=== PATIENT | female | born 1955 | race Caucasian/White ===

== ENCOUNTER 2021-06-10 14:48 | Emergency (ER) | payer OTHER ==
--- NOTE | 2021-06-10 15:12 | ED Physician Documentation ---
PD HPI MAJOR TRAUMA - Stated complaint Stated Complaint: ,HEAD & FACE INJURY - Chief complaint Chief Complaint: Trauma Hd/Nk - History obtained from History obtained from: Patient - Additional information Additional information: 66-year-old woman who is up-to-date on tetanus fell face forward onto concrete after a trip and fall without loss of consciousness. She is significant neck pain and some facial pain as well as a moderate headache. She has some scrapes on the hands but those do not hurt and she has full range of motion there. No other injuries. Review of Systems Constitutional: reports: Reviewed and negative Eyes: reports: Reviewed and negative Ears: reports: Reviewed and negative Nose: reports: Reviewed and negative Throat: reports: Reviewed and negative Cardiac: reports: Reviewed and negative PD PAST MEDICAL HISTORY - Allergies Allergies/Adverse Reactions: Allergies Allergy/AdvReac Type Severity Reaction Status Date / Time Opiods AdvReac Unknown Uncoded 06/10/21 14:57 PD ED PE NORMAL - Vitals Vital signs reviewed: Yes - General General: Alert and oriented X 3, No acute distress - HEENT HEENT: PERRL, EOMI, Other (Swelling and contusion of the bridge of the nose which is tender and the left side of the forehead. Also some scrapes in the infraorbital areas but no tenderness there.). No: Dentition benign (She has minor chips of upper and lower incisors on the left. 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, No motor deficit, No sensory deficit, Normal speech Eye Opening: Spontaneous Motor: Obeys Commands Verbal: Oriented GCS Score: 15 Results - Vitals Vitals: Vital Signs - 24 hr 06/10/21 14:50 Temperature 36.2 C L Heart Rate 62 Respiratory 17 Rate Blood Pressure 132/81 H O2 Saturation 100 Oxygen O2 Source Room air - Rads (name of study) CT of the head face and cervical spine demonstrates a nasal bone fracture but no other trauma Radiology: EMP read contemporaneously PD MEDICAL DECISION MAKING - ED course Complexity details: reviewed results, re-evaluated patient, considered differential, d/w patient ED course: 66-year-old woman after a ground-level fall, facial neck and head pain. Scrapes on the hands but no tenderness there and full range of motion. Declines pain medication. Departure - Departure Disposition: 01 Home, Self Care Clinical Impression: Nasal fracture Qualifiers: Encounter type: initial encounter Fracture type: closed Qualified Code(s): S02.2XXA - Fracture of nasal bones, initial encounter for closed fracture Head injury Qualifiers: Encounter type: initial encounter Qualified Code(s): S09.90XA - Unspecified injury of head, initial encounter Neck sprain Qualifiers: Encounter type: initial encounter Qualified Code(s): S13.9XXA - Sprain of joints and ligaments of unspecified parts of neck, initial encounter Dental injury Qualifiers: Encounter type: initial encounter Qualified Code(s): S09.93XA - Unspecified injury of face, initial encounter Condition: Good Record reviewed to determine appropriate education?: Yes Instructions: ED Fx Nasal Conf W X Ray, ED Head Injury Closed Comments: Follow-up with your dentist regarding the dental fractures. You may want to follow-up with an oral maxillofacial surgeon or an ear nose and throat special ist regarding the nasal fracture. Take the copy of the CAT scan on CD with you to that appointment. You can call after you get home tomorrow. Suspect you will have to travel to [place] for that. Tylenol and/or Aleve as needed for pain. You can ice the nose as needed.
--- NOTE | 2021-06-10 15:52 | CT Report ---
PROCEDURE: CERVICAL SPINE WO INDICATIONS: neck injury TECHNIQUE: Noncontrast 3 mm thick sections acquired from the skull base to the T4 level. Sagittal and coronal r eformats were then constructed. For radiation dose reduction, the following was used: automated exp osure control, adjustment of mA and/or kV according to patient size. COMPARISON: None. FINDINGS: Image quality: Excellent. Bones: No fractures or dislocations. Visualized superior ribs are intact. There are lucencies pres ent in the C3 vertebra and C5 vertebra which are both felt to likely be benign. There is mild cervica l spondylitic change. Soft tissues: Prevertebral soft tissues are normal in thickness. No paravertebral hematomas. No ap ical pneumothoraces. IMPRESSION: No evidence acute cervical fracture or dislocation. Mild cervical spondylitic change. Reviewed by: Frank Sharif MD on 06/10/2021 2:51 PM [facility] Approved by: Frank Sharif MD on 06/10/2021 2:51 PM [facility] Station ID: [id number]
--- NOTE | 2021-06-10 15:54 | CT Report ---
PROCEDURE: HEAD WO INDICATIONS: head injury TECHNIQUE: Noncontrast 4.5 mm thick angled axial sections acquired from the foramen magnum to the vertex. For r adiation dose reduction, the following was used: automated exposure control, adjustment of mA and/or kV according to patient size. COMPARISON: None. FINDINGS: Image quality: Excellent. CSF spaces: Basal cisterns are patent. No extra-axial fluid collections. Ventricles are normal in size and shape. Brain: No midline shift. No intracranial masses or hemorrhage. [place]-white matter interface is norm al. Age-related volume loss and small vessel ischemic change. Intracranial carotid calcifications. Skull and face: Calvarium and visualized facial bones are intact, without suspicious lesions. Sinuses: Visualized sinuses and mastoids are clear. IMPRESSION: 1. No evidence of acute intracranial process. No evidence of significant intracranial sequelae of acu te trauma. 2. Age-related volume loss and small vessel ischemic change. Reviewed by: Frank Sharif MD on 06/10/2021 2:52 PM [facility] Approved by: Frank Sharif MD on 06/10/2021 2:52 PM [facility] Station ID: [id number]
--- NOTE | 2021-06-10 15:56 | CT Report ---
PROCEDURE: MAXILLOFACIAL WO INDICATIONS: facial pain/inj TECHNIQUE: Noncontrast 1.5 mm thick axial images acquired from the mandible through the frontal sinuses, with co aline and sagittal reformatting. For radiation dose reduction, the following was used: automated ex posure control, adjustment of mA and/or kV according to patient size. COMPARISON: None. FINDINGS: Image quality: Excellent. Bones and teeth: Orbital lovelace are intact. Sinus lovelace show no fracture or deformity. Comminuted na sammy bone fracture of uncertain chronicity. Nasal septum intact. Visualized portions of the mandible d emonstrate no fractures or subluxation. Zygomatic arches are intact. Pterygoid plates are intact. Visualized portions of the skull base and auditory canals are intact. Sinuses: Paranasal sinuses are aerated, without fluid levels, mucosal thickening, or mucoceles. Mas toid air cells are aerated. Soft tissues: No edema, masses, or fluid collections. No enlarged lymph nodes. No soft tissue lace rations or debris. Vascular: Visualized vascular structures appear normal in the absence of contrast. Bony vascular fo ramina and canals are intact. IMPRESSION: 1. Comminuted nasal bone fracture of uncertain chronicity. 2. No evidence of displaced facial bone fracture or mandibular fracture. Reviewed by: Frank Sharif MD on 06/10/2021 2:55 PM [facility] Approved by: Frank Sharif MD on 06/10/2021 2:55 PM [facility] Station ID: [id number]
[2021-06-10 16:18] VITALS: BP 122/69
== END 2021-06-10 16:16 | disposition home or self-care (01) ==
LOC: ED 14:48
DX: S02.2XXA Fracture of nasal bones, initial encounter for closed fracture (principal); S09.90XA Unspecified injury of head, initial encounter; S13.9XXA Sprain of joints and ligaments of unspecified parts of neck, initial encounter; S02.5XXA Fracture of tooth (traumatic), initial encounter for closed fracture; W10.9XXA Fall (on) (from) unspecified stairs and steps, initial encounter; Y93.89 Activity, other specified; Y92.830 Public park as the place of occurrence of the external cause
CPT/HCPCS: 99282; 99284